=== PATIENT | male | born 1965 | race Caucasian/White ===

== ENCOUNTER 2021-07-18 07:43 | Day surgery (SDC) | payer OTHER ==
[2021-07-14 13:22] VITALS: BMI 30.4
[2021-07-18] MEDS ORDERED: LACTATED RINGERS 1,000 ML IV ONE (08:10)
[2021-07-18 08:15] VITALS: TEMP 97.8
[2021-07-18] MEDS ORDERED: PROPOFOL 10 MG/ML 20 ML VIAL IV ONE (08:21)
--- NOTE | 2021-07-18 08:30 | P.GSHP ---
History of Present Illness H&P Date: 07/18/21 Chief Complaint: Colon cancer screening 56-year-old male here today for colonoscopy. He has not had 1 previously. No family history of colon cancer. No bowel complaints. Past Medical History Past Medical History: GERD/Reflux, Prostate Disorder History of Any Multi-Drug Resistant Organisms: None Reported Past Surgical History: No Surgical Hx Reported Past Anesthesia/Blood Transfusion Reactions: No Reported Reaction Smoking Status: Current every day smoker - Past Family History Mother Family Medical History: Cancer Medications and Allergies Home Medications Medication Instructions Recorded Confirmed Type Finasteride [Proscar] 5 mg PO DAILY 07/14/21 07/14/21 History Omeprazole 20 mg PO DAILY 07/14/21 07/14/21 History Tamsulosin [Flomax] 0.4 mg PO DAILY 07/14/21 07/14/21 History Allergies Allergy/AdvReac Type Severity Reaction Status Date / Time No Known Allergies Allergy Verified 07/18/21 08:07 Surgical - Exam Vital Signs Temp Pulse Resp BP Pulse Ox 97.8 F 59 L 15 125/73 98 07/18/21 08:14 07/18/21 08:14 07/18/21 08:14 07/18/21 08:14 07/18/21 08:14 Physical exam: General: Well-developed, well-nourished HEENT: Normocephalic, sclerae nonicteric Abdomen: Nontender, nondistended Extremities: No edema Neuro: Alert and oriented Assessment and Plan (1) Colon cancer screening Narrative/Plan: Will proceed with colonoscopy Current Visit: Yes Status: Acute Code(s): Z12.11 - ENCOUNTER FOR SCREENING FOR MALIGNANT NEOPLASM OF COLON SNOMED Code(s): 276863539
--- NOTE | 2021-07-18 08:53 | P.PCN ---
Date of Procedure: 07/18/21 Procedure(s) Performed: PREOPERATIVE DIAGNOSIS: Colon cancer screening POSTOPERATIVE DIAGNOSIS: Normal exam PROCEDURE: Colonoscopy ANESTHESIA: MAC SURGEON: Juancarlos Gaitan M.D. SPECIMENS: None ENDOSCOPIC PROCEDURE: The patient was placed on the endoscopy table in the left decubitus position. The Olympus colonoscope was inserted into the anus and passed under direct visualization to the base of the cecum. The appendiceal orifice was visualized. From that point the scope was slowly withdrawn inspecti ng all surfaces carefully. There were no neoplastic inflammatory or polypoid lesions throughout the cecum, ascending, transverse, descending, sigmoid and rectum. There was no visible diverticulosis noted. Digital rectal examination was normal. The patient was taken to the recovery room in stable condition per anesthesia guidelines. RECOMMENDATIONS: Resume diet. Follow colonoscopy 10 years.
[2021-07-18 09:07] VITALS: RESP 16
[2021-07-18 09:22] VITALS: BP 113/74; PULSE 38
== END 2021-07-18 09:31 | disposition home or self-care (01) ==
LOC: ORWHC2ENDO 07:43
PROVIDERS: ATTEND Surgery
DX: Z12.11 Encounter for screening for malignant neoplasm of colon (principal); F17.200 Nicotine dependence, unspecified, uncomplicated; K21.9 Gastro-esophageal reflux disease without esophagitis; N40.0 Benign prostatic hyperplasia without lower urinary tract symptoms
CPT/HCPCS: G0121; J2704

== ENCOUNTER → 2022-09-19 | Outpatient (CLI) | payer BC ==
--- NOTE | 2022-09-20 10:10 | MR ---
EXAMINATION TYPE: MR brain wo/w con DATE OF EXAM: 09/19/2022 COMPARISON: None HISTORY: CVA, memory loss, neoplasm. TECHNIQUE: Multiplanar, multisequence images of the brain and brainstem is performed without and with IV contras t, utilizing 9 mL intravenous Gadavist . FINDINGS: Diffusion weighted images demonstrate no evidence of a recent infarct or other diffusion ab normality. There is no extra-axial fluid collection or significant white matter signal abnormality. The ventricular system and cisternal spaces are normal in size and appearance. The brain volume is age appropriate. Midline structures demonstrate normal morphology. The craniocervical junction appears within normal limits. Post contrast images demonstrate no abnormal enhancement. The dural venous sinuses appear pa tent. The visualized sinuses are clear and the globes are intact. IMPRESSION: No evidence for acute/subacute CVA, intracranial mass or abnormal postcontrast enhancement.
== END | disposition home or self-care (01) ==
LOC: RADMRIMAIN 19:36
PROVIDERS: ATTEND Psychiatry & Neurology Neurology
DX: I63.9 Cerebral infarction, unspecified (principal); R41.3 Other amnesia
CPT/HCPCS: 70553; A9585

== ENCOUNTER → 2023-12-02 | Outpatient (CLI) | payer BC ==
--- NOTE | 2023-12-02 10:28 | US ---
EXAMINATION TYPE: US groin RT DATE OF EXAM: 12/02/2023 COMPARISON: NONE CLINICAL INDICATION: Male, 58 years old with history of K40.90 UNIL INGUINAL HERNIA, W/O OBST OR GANG R, NO; Patient states right groin bulge since April, patient does not remember injury. TECHNIQUE: Multiple sonographic images taken of patients area of concern at right groin FINDINGS: Multiple images taken. Possible right inguinal hernia seen = 0.5 cm with valsalva perform ed. If additional evaluation would be of benefit, consider CT abdomen and pelvis. IMPRESSION: 1. Clinical correlation recommended for right inguinal hernia.
== END | disposition home or self-care (01) ==
LOC: RADUSWWP 08:04
PROVIDERS: ATTEND Family Medicine
DX: K40.90 Unilateral inguinal hernia, without obstruction or gangrene, not specified as recurrent (principal)

== ENCOUNTER 2024-01-31 08:17 | Day surgery (SDC) | payer BC ==
--- NOTE | 2024-01-31 07:43 | P.GSHP ---
History of Present Illness H&P Date: 01/31/24 Chief Complaint: Inguinal hernia 58-year-old male seen in the office in November. Noticed a bulge in the right groin in May. Thought he might have a smaller bulge on the left as well. No history of previous hernias. Patient wears a truss. He works as a [employer]. No tobacco use. Past Medical History Past Medical History: GERD/Reflux, Prostate Disorder Additional Past Medical History / Comment(s): BPH, tested for memory loss - no issues identified, currently has morrison from work Lt. ankle 1" diameter, Rt. knee 2"x 1" History of Any Multi-Drug Resistant Organisms: None Reported Past Surgical History: No Surgical Hx Reported Additional Past Surgical History / Comment(s): colonoscopy Past Anesthesia/Blood Transfusion Reactions: No Reported Reaction Additional Past Anesthesia/Blood Transfusion Reaction / Comment(s): states IV "burned terribly" with one medication Smoking Status: Current every day smoker - Past Family History Mother Family Medical History: Cancer Medications and Allergies Home Medications Medication Instructions Recorded Confirmed Type Finasteride [Proscar] 5 mg PO DAILY 07/14/21 01/28/24 History Omeprazole 20 mg PO DAILY 07/14/21 01/28/24 History Tamsulosin [Flomax] 0.4 mg PO DAILY 07/14/21 01/28/24 History Escitalopram [Lexapro] 10 mg PO DAILY 01/28/24 01/28/24 History Mv-Min/Folic/K1/Lycopen/Lutein 1 each PO DAILY 01/28/24 01/28/24 History [Centrum Silver Men Tablet] Allergies Allergy/AdvReac Type Severity Reaction Status Date / Time No Known Allergies Allergy Verified 01/28/24 09:17 Surgical - Exam Physical exam: General: Well-developed, well-nourished HEENT: Normocephalic, sclerae nonicteric Abdomen: Nontender, nondistended, bilateral reducible inguinal hernia right greater than left Extremities: No edema Neuro: Alert and oriented Assessment and Plan (1) Inguinal hernia Narrative/Plan: 58-year-old male with bilateral inguinal hernia. Will proceed with laparoscopic da Steph assisted repair bilateral inguinal hernia with mesh, possible open. Risks of bleeding, infection, recurrence, bladder and bowel injury, numbness, nerve injury, conversion to an open procedure were discussed with the patient. The patient understands and wishes to proceed. Status: Acute Code(s): K40.90 - UNIL INGUINAL HERNIA, W/O OBST OR GANGR, NOT SPCF RECUR SNOMED Code(s): 412471648
[~2024-01-31 08:17] MED LIST: HYDROmorphone 0.5 MG/0.5 ML SYRINGE IVP PRN; LIDOCAINE 1% (10MG/ML) FOR IV START INTRADERMA PRN; droPERidol 5 MG/2 ML VIAL IVP ONE
[2024-01-31] MEDS: LACTATED RINGERS 1,000 ML IV SCH (08:30)
[2024-01-31 09:26] LABS: Basophils % (A) 1 %; Eosinophils # (A) 0.1 k/uL (0-0.7); Eosinophils % (A) 4 %; HCT 39.1 % (39.0-53.0); HGB 13.6 gm/dL (13.0-17.5); Lymphocytes # (A) 1.3 k/uL (1.0-4.8); Lymphocytes % (A) 36 %; MCHC 34.7 g/dL (31.0-37.0); Mean Platelet Volume 8.7; Monocytes # (A) 0.3 k/uL (0-1.0); Monocytes % (A) 8 %; Neutrophils # (A) 1.7 k/uL (1.3-7.7); Neutrophils % (A) 49 %; Platelet Count 174 k/uL (150-450); RBC 3.99 m/uL (4.30-5.90); RDW 11.9 % (11.5-15.5); WBC 3.5 k/uL (3.8-10.6)
[2024-01-31] MEDS: ONDANSETRON 4 MG/2 ML VIAL IVP ONE (09:27)
[2024-01-31] MEDS: ACETAMINOPHEN TAB 500 MG TAB PO PRN (09:27)
[2024-01-31] MEDS: DEXAMETHASONE SOD PHOSPHATE 4 MG/ML 1 ML VIAL IV ONE (09:27)
[2024-01-31] MEDS: HEPARIN SODIUM,PORCINE 5,000 UNIT/ML 1 ML VIAL SQ PRN (09:27)
[2024-01-31] MEDS: TAMSULOSIN 0.4 MG CAP.ER.24H PO ONE (09:34)
[2024-01-31] MEDS ORDERED: LIDOCAINE 1% INJ 10MG/ML (20 ML MDV) ONE (10:06)
[2024-01-31] MEDS ORDERED: NEOSTIGMINE 1 MG/ML 10 ML VIAL ONE (10:06)
[2024-01-31] MEDS ORDERED: ROCURONIUM 10 MG/ML (5 ML VIAL) IV ONE (10:06)
[2024-01-31] MEDS ORDERED: HYDROmorphone (PF) 1 MG/ML ONE (10:06)
[2024-01-31] MEDS ORDERED: KETAMINE HCL IN 0.9 % NACL 50 MG/5 ML SYRINGE ONE (10:06)
[2024-01-31] MEDS ORDERED: PROPOFOL 10 MG/ML 20 ML VIAL IV ONE (10:06)
[2024-01-31] MEDS ORDERED: MIDAZOLAM 2 MG/2 ML VIAL ONE (10:06)
[2024-01-31] MEDS ORDERED: GLYCOPYRROLATE 0.2 MG/ML 2 ML VIAL ONE (10:06)
[2024-01-31] MEDS ORDERED: fentaNYL (PF) 50 MCG/ML 2 ML AMP ONE (10:06)
[2024-01-31] MEDS ORDERED: KETOROLAC 15 MG/ML 1 ML VIAL ONE (10:06)
[2024-01-31] MEDS: BUPIVACAINE (PF) 0.25% 30 ML VIAL SQ ONE (10:35)
--- NOTE | 2024-01-31 12:50 | P.OP ---
Date of Procedure: 01/31/24 Procedure(s) Performed: PREOPERATIVE DIAGNOSIS: Bilateral inguinal hernia POSTOPERATIVE DIAGNOSIS: Right indirect inguinal hernia, left direct inguinal hernia PROCEDURE: Laparoscopic da Steph assisted repair bilateral inguinal hernia with mesh, excision cord lipoma SURGEON: Dr. Gaitan ANESTHESIA: General OPERATIVE PROCEDURE DETAILS: The patient was placed in the operating table in the supine position. The patient was placed under general anesthesia. The abdomen was prepped and draped in usual sterile fashion. A small curvilinear supraumbilical incision was made. The fascia was retracted anteriorly with Winfield forceps. The Veress needle was inserted. The saline drop test was normal. Insufflation took place to 15 mmHg. An 8 mm trocar was placed into the peritoneal cavity. 2 additional 8 mm trochars were placed in the right upper quadrant and left upper quadrant under visualization. The robotic arms were then brought in and docked into place. The fenestrated bipolar was used in the left arm and the laparoscopic gerson was utilized in the right arm. A 30 8 mm scope was used in the up position. The peritoneal cavity was inspected. The patient had a moderate sized right indirect inguinal hernia and no frankly visible left inguinal hernia. A incision was created on the peritoneum across the lower abdomen superior to the bladder. The preperitoneal dissection took place bilaterally at that time. The indirect hernia on the right-hand side was reduced using blunt dissection. Mark's ligament and the pubic symphysis were well-visualized. Dissection on the left-hand side revealed a small direct inguinal hernia that was able to be reduced. The patient had a cord lipoma that was excised as well. Once we had full dissection in both sacs fully reduced 2 separate 15 x 10 mm Progrip mesh were placed within the abdomen crossing one another in the midline. These were then sutured to the Mark's ligament across the pubic symphysis to the opposite side using a running 30 absorbable V lock suture. The same stitch was then brought to the midline and the mesh was sutured to the abdominal wall in the midline superiorly. This covered all hernia spaces nicely. The peritoneal defect was then closed bilaterally using a absorbable 2-0 VLok suture. The hernia sac was incorporated into the peritoneal closure to help prevent future recurrence. A small defect on the left side was closed using a [id number] 3-0 Vicryl stitch. The pneumoperitoneum was then evacuated. The skin of all 3 sites was closed using a 4-0 Monocryl stitch. Skin glue was then applied. TYPE OF MESH USED: Progrip 15 x 10 LOCATION OF MESH: Preperitoneal/sub-lay FIXATION: Absorbable 30V lock PREOPERATIVE DISCUSSION ON SMOKING CESSASTION: Yes PREOPERATIVE DISCUSSION ON MORBID OBESITY: Yes PREOPERATIVE DISCUSSION ON APPROPRIATE USE OF NARCOTIC USE: Yes PREOPERATIVE EDUCATION: Multi Modal, Smoking Cessation and Weight Loss with BMI over 35. DISPOSITION: Stable to recovery room
[2024-01-31 12:56] VITALS: TEMP 98
[2024-01-31] MEDS ORDERED: ACETAMINOPHEN TAB 325 MG TAB PO SCH (15:00)
[2024-01-31 15:08] VITALS: BP 129/84; PULSE 55; RESP 18
[2024-01-31] MEDS ORDERED: IBUPROFEN 600 MG TAB PO SCH (18:00)
== END 2024-01-31 15:48 | disposition home or self-care (01) ==
LOC: OR 08:17
PROVIDERS: ATTEND Surgery
DX: K40.20 Bilateral inguinal hernia, without obstruction or gangrene, not specified as recurrent (principal); D17.6 Benign lipomatous neoplasm of spermatic cord; K21.9 Gastro-esophageal reflux disease without esophagitis; N40.0 Benign prostatic hyperplasia without lower urinary tract symptoms; F17.200 Nicotine dependence, unspecified, uncomplicated; Z79.899 Other long term (current) drug therapy
CPT/HCPCS: 49650; S2900; 85025